=== PATIENT | female | born 1990 | race Caucasian/White ===

== ENCOUNTER → 2016-11-20 | Outpatient (CLI) | payer OTHER ==
[2016-11-20 15:22] LABS: CHCM 33.4; HDW 2.29; MCH 31.3 pg (25.0-35.0); MCHC 32.5 g/dL (31.0-37.0); MCV 96.2 fL (80.0-100.0); Mean Platelet Volume 7.9; RBC 4.47 m/uL (3.80-5.40); RDW 12.3 % (11.5-15.5); WBC 11.5 k/uL (3.8-10.6)
[2016-11-20 15:41] LABS: Glucose 79 mg/dL (74-99); Non-African American GFR(MDRD) >60 (>60 ml/min/1.73 sqM)
[2016-11-20 16:14] LABS: Hepatitis B Surface Ag Index 0.06
--- NOTE | 2016-11-20 16:41 | US ---
EXAMINATION TYPE: US OB <= 14 wk fetus DATE OF EXAM: 11/20/2016 COMPARISON: NONE CLINICAL HISTORY: 26-year-old female Z36 Confirm dates. Confirm Dates, patient has h/o PCOS, unknown dates EXAM PERFORMED: Transabdominal (TA) FINDINGS: EXAM MEASUREMENTS: GESTATIONAL AGE / DATING Physician Established: (8 weeks/3 days) EDC: 06/29/2017 Dates by LMP: Unknown Dates by First Scan: No prior Dates by Current Scan for: (8 weeks/3 days) EDC: 06/29/2017 MATERNAL ANATOMY Uterus: 9.4 x 6.7 x 6.4 cm Right Ovary: 4.2 x 2.5 x 2.6 cm Left Ovary: 4.9 x 3.1 x 2.4 cm Post CDS / Adnexa: wnl Presence of free fluid: No Presence of corpus luteal cyst: Left Ovary= 2.2 x 2.4 x 2.0 cm Presence of subchorionic bleed: wnl GESTATION / SURVEY CRL: 1.9 cm (8 weeks/3 days) MSD: wnl Yolk Sac (normal less than 6mm): 3mm Heart Rate: 172 bpm, borderline elevated. Rhythm: Normal IUP: Viable IUP Date of LMP: Unknown PLANNER SCHEDULER NOTES: Single, viable IUP, no abnormality seen at this time IMPRESSION: 1. Single live intrauterine with established gestational age of 8 weeks 3 days. Current ult rasound biometry is exactly concordant. 2. Borderline elevated heart rate (172 BPM). Follow-up can be considered. 3. Complete survey recommended at 18-20 weeks.
[2016-11-24 08:00] LABS: HIV-1/HIV-2 Ab Screen NONREAC (NON REAC)
== END | disposition home or self-care (01) ==
LOC: RADUSWWP 14:37
PROVIDERS: ATTEND Obstetrics & Gynecology
DX: O26.811 Pregnancy related exhaustion and fatigue, first trimester (principal); Z3A.08 8 weeks gestation of pregnancy
CPT/HCPCS: 76801; 82565; 82947; 85027; 86762; 86780; 86850; 86900; 86901; 87340; 87389

== ENCOUNTER → 2017-03-15 | Outpatient (CLI) | payer OTHER ==
[2017-03-15 12:58] LABS: CH 33.2; CHCM 34.2; HGB 12.5 gm/dL (11.4-16.0); MCH 32.1 pg (25.0-35.0); MCHC 32.9 g/dL (31.0-37.0); MCV 97.6 fL (80.0-100.0); Mean Platelet Volume 6.9; RBC 3.89 m/uL (3.80-5.40); WBC 12.9 k/uL (3.8-10.6)
== END | disposition home or self-care (01) ==
LOC: LABWHC1 11:38
PROVIDERS: ATTEND Obstetrics & Gynecology
DX: Z34.02 Encounter for supervision of normal first pregnancy, second trimester (principal)
CPT/HCPCS: 36415; 82950; 85027

== ENCOUNTER 2017-06-29 08:55 | Inpatient (IN) | payer OTHER ==
[2017-06-29] MEDS ORDERED: OXYTOCIN 10 UNIT/ML 1 ML VIAL IM PRN (11:05)
[2017-06-29] MEDS ORDERED: TERBUTALINE 1 MG/ML VIAL SQ PRN (11:05)
[2017-06-29] MEDS ORDERED: METHYLERGONOVINE 0.2 MG/ML 1 ML AMP IM PRN (11:05)
[2017-06-29] MEDS ORDERED: LIDOCAINE 1% (PF) 10 MG/ML (30 ML SDV) SQ PRN (11:05)
[2017-06-29] MEDS ORDERED: CARBOPROST TROMETHAMINE 250 MCG/ML 1 ML AMP IM PRN (11:05)
[2017-06-29 11:44] LABS: Basophils % (A) 0 %; Eosinophils # (A) 0.3 k/uL (0-0.7); Eosinophils % (A) 3 %; HCT 37.6 % (34.0-46.0); HGB 12.6 gm/dL (11.4-16.0); Lymphocytes # (A) 2.8 k/uL (1.0-4.8); Lymphocytes % (A) 24 %; MCH 31.2 pg (25.0-35.0); MCHC 33.5 g/dL (31.0-37.0); Mean Platelet Volume 6.7; Monocytes # (A) 0.6 k/uL (0-1.0); Monocytes % (A) 5 %; Neutrophils # (A) 7.8 k/uL (1.3-7.7); Neutrophils % (A) 67 %; Platelet Count 391 k/uL (150-450); RBC 4.04 m/uL (3.80-5.40); RDW 12.6 % (11.5-15.5); WBC 11.7 k/uL (3.8-10.6)
[2017-06-29 11:49] LABS: ALT 24 U/L (9-52); AST 19 U/L (14-36); Blood Urea Nitrogen 8 mg/dL (7-17); LDH 448 U/L (313-618); Uric Acid 5.5 mg/dL (3.7-7.4)
[2017-06-29 11:54] LABS: INR 0.9 (<1.2); Partial Thromboplastin Time 22.8 sec (22.0-30.0); Prothrombin Time 9.3 sec (9.0-12.0)
[2017-06-29] MEDS: LACTATED RINGERS 1,000 ML IV SCH (12:18)
[2017-06-29 12:48] LABS: Appearance,Urine Cloudy (Clear); Bacteria,Urine Many /hpf; Bilirubin,Urine Negative (Negative); Blood,Urine Negative (Negative); Calcium Oxalate Crystals,Urine Moderate /hpf; Color,Urine Yellow; Glucose,Urine (UA) Negative (Negative); Ketones,Urine Trace (Negative); Leukocyte Esterase,Urine Large (Negative); Mucus,Urine Rare /hpf; Nitrite,Urine Negative (Negative); Protein,Urine 1+ (Negative); RBC,Urine 17 /hpf (0-5); Specific Gravity,Urine 1.025 (1.001-1.035); Squamous Epithelial Cell,Urine 48 /hpf (0-4); Urobilinogen,Urine <2.0 mg/dL (<2.0); WBC,Urine 52 /hpf (0-5)
--- NOTE | 2017-06-29 12:57 | P.HPOB ---
History of Present Illness H&P Date: 06/29/17 Chief Complaint: Hypertension This patient is a pleasant 27-year-old 1 para 0 female estimated date of confinement 06/29/2017 estimated gestational age 40-0/7 weeks gestation who was admitted to labor and delivery from my office for evaluation of hypertension. Patient's blood pressure in the office was 146/90. Blood pressures have been running 120s to 130s over 80s. Patient denies any headache , blurry vision, or other signs and symptoms of preeclampsia. has been complicated by a seizure disorder although she has not been on any medications and has not had a seizure during her . Preeclampsia labs at this time are normal however she does remained with elevated diastolic blood pressure and therefore I have recommended admission and delivery. Review of Systems Constitutional: Reports as per HPI Gastrointestinal: Reports heartburn Genitourinary: Reports Menstruation: Reports amenorrhea Past Medical History Past Medical History: Seizure Disorder, Skin Disorder Additional Past Medical History / Comment(s): Last seizure June 02 2016; Patient states that she has grand mal seizures although is not currently under the care of a neurologist it is not any medications nor does she want any medications. History of Any Multi-Drug Resistant Organisms: None Reported Past Surgical History: Cholecystectomy Past Anesthesia/Blood Transfusion Reactions: No Reported Reaction Past Psychological History: No Psychological Hx Reported Smoking Status: Never smoker Past Alcohol Use History: None Reported Past Drug Use History: None Reported Additional Drug Use History / Comment(s): Patient reports to the nurse that prior to she was using marijuana for treatment of her seizures however denies use during the . - Past Family History Mother Family Medical History: Hypertension Medications and Allergies Home Medications Medication Instructions Recorded Confirmed Type Pnv,Calcium 72/Iron/Folic Acid 1 tab PO DAILY 06/29/17 06/29/17 History [ Plus Tablet] Allergies Allergy/AdvReac Type Severity Reaction Status Date / Time No Known Allergies Allergy Verified 06/29/17 11:03 Exam - Vital Signs Vital signs: Vital Signs Temp Pulse Resp BP Pulse Ox 06/29/17 11:13 97.1 F L 113 H 19 135/90 98 Intake and Output 06/28/17 06/29/17 06/29/17 22:59 06:59 14:59 Other: Weight 103.419 kg Patient Weight 06/30/17 06:59 Weight 103.419 kg - OBG Physical Exam Abdomen: bowel sounds normal, no diffuse tenderness, no bruit present, no guarding noted, no hepatomegaly, no splenomegaly, no mass Vulva: both: normal Vagina: normal moisture, no discharge Cervix: Cervix is 1-2 cm dilated un effaced and soft. Uterus: enlarged (Fundal height is 40 cm) Results blood work shows she is O positive, rubella low positive, RPR nonreactive, HIV nonreactive, hepatitis B was negative, group B strep was negative, she's had a normal ultrasound., Patient's had normal glucose testing. Result Diagrams: 06/29/17 11:20 06/29/17 11:18 Abnormal Lab Results - Last 24 Hours (Table) 06/29/17 06/29/17 Range/Units 11:20 11:20 WBC 11.7 H (3.8-10.6) k/uL Neutrophils # 7.8 H (1.3-7.7) k/uL Urine Appearance Cloudy H (Clear) Urine Protein 1+ H (Negative) Urine Ketones Trace H (Negative) Ur Leukocyte Esterase Large H (Negative) Urine RBC 17 H (0-5) /hpf Urine WBC 52 H (0-5) /hpf Ur Squamous Epith Cells 48 H (0-4) /hpf Calcium Oxalate Crystal Moderate H (None) /hpf Urine Bacteria Many H (None) /hpf Urine Mucus Rare H (None) /hpf Assessment and Plan Assessment: This is a 27-year-old 1 para 0 female 40-0/7 weeks gestation with mild gestational hypertension without evidence of preeclampsia. Plan at this time his admission and induction of labor for delivery tomorrow morning. Patient I discussed her clinical situation and recommendations for delivery. I also discussed the induction process. (1) Gestational hypertension affecting first Current Visit: Yes Status: Acute Code(s): O13.9 - GESTATIONAL HTN W/O SIGNIFICANT PROTEINURIA, UNSP TRIMESTER SNOMED Code(s): 00869453
[2017-06-30] MEDS: LACTATED RINGERS 1,000 ML IV SCH ×4 (05:31→13:54)
[2017-06-30] MEDS ORDERED: OXYTOCIN 20 UNITS/1000 ML NS 1,000 ML IV SCH ×2 (06:00→21:15)
--- NOTE | 2017-06-30 06:08 | P.PN ---
Progress Note - Text Progress Note Date: 06/30/17 Patient rested overnight. Blood pressures were fine. heart tones are reactive. Cervix is 3 cm and were beginning Pitocin per protocol for induction. Artificial rupture membranes was done for clear fluid. Anticipate vaginal delivery.
[2017-06-30] MEDS: BUTORPHANOL 1 MG/ML 1 ML VIAL IV PRN ×2 (11:37→14:42)
[2017-06-30] MEDS ORDERED: AMPICILLIN 2,000 MG in SODIUM CHLORIDE 0.9% 100 ML IVPB STA (19:47)
[2017-06-30] MEDS ORDERED: ZOLPIDEM 5 MG TAB PO PRN (21:12)
[2017-06-30] MEDS ORDERED: MEASLES-MUMPS-RUBELLA VACC/PF 12,500 UNIT/0.5 ML VIAL SQ ONE (21:12)
[2017-06-30] MEDS ORDERED: BISACODYL 10 MG SUPP RECTAL PRN (21:12)
[2017-06-30] MEDS ORDERED: BENZOCAINE/MENTHOL SPRAY 1 GM/SPRAY AEROSOL TOPICAL PRN (21:12)
[2017-06-30] MEDS ORDERED: SIMETHICONE 80 MG CHEWABLE PO PRN (21:12)
[2017-06-30] MEDS ORDERED: diphenhydrAMINE 50 MG/ML 1 ML VIAL IVP PRN (21:12)
[2017-06-30] MEDS ORDERED: Acetaminophen-Codeine 300-30mg TAB PO PRN ×2 (21:12)
[2017-06-30] MEDS ORDERED: LANOLIN CREAM 5 GM TUBE TOPICAL PRN (21:12)
[2017-06-30] MEDS ORDERED: HYDROCORTISONE 2.5% RECTAL CREAM 30 GM TUBE RECTAL PRN (21:12)
[2017-06-30] MEDS ORDERED: WITCH HAZEL 1 EACH MED..PAD TOPICAL PRN (21:12)
[2017-06-30] MEDS ORDERED: diphenhydrAMINE 25 MG CAP PO PRN (21:12)
[2017-06-30] MEDS ORDERED: ACETAMINOPHEN TAB 325 MG TAB PO PRN (21:12)
--- NOTE | 2017-06-30 21:20 | P.PROBDLV ---
Vaginal Delivery Note - . Vaginal Delivery Note: Normal vaginal delivery of a viable female Apgars 8 and 9 delivery time is 2049 hrs. Please see dictated H&P for intimate details of this patient's admission. Brief summary this is a 27-year-old 1 para 0 female 40 and one sevenths weeks gestation admitted for induction of labor secondary to gestational hypertension. Patient is 3 cm dilated has artificial rupture of membranes for clear fluid. Labor is induced with Pitocin. Patient does progress slowly but does get to complete. She received 2 doses of intrapartum Stadol for pain control. Patient pushes the head to the perineum and the posterior perineum was supported. We have controlled delivery of infant's head over the intact perineum. Mouth and nares are bulb suctioned. There is a double nuchal cord and the patient continues to push and deliver is anterior posterior shoulder and rest this 's body. This is a vigorous viable female Apgars 8 and 9 delivery time is 2049 hrs area and after delivery of the infant the infant is late on the mother's abdomen. Patient does request delayed cord clamping and this is done. At this time the cords doubly clamped and cut. It does appear to be trivascular. Placenta spontaneously delivered intact. Estimated blood loss is 150 mL. There is a first-degree posterior perineal laceration is repaired with 3-0 Vicryl usual manner. Also a right periurethral lacerations does not require repair. All counts are correct 3. There were no complications. Infant and mother stable delivery room.
[2017-06-30] MEDS: IBUPROFEN 600 MG TAB PO PRN (22:52)
[2017-06-30 23:02] VITALS: BMI 39.1
[2017-07-01] MEDS ORDERED: AMPICILLIN 1,000 MG in SODIUM CHLORIDE 0.9% 50 ML IVPB SCH ×2
--- NOTE | 2017-07-01 06:13 | P.PNOBGVD ---
Subjective - Subjective Patient reports: Reports appetite normal, Reports voiding normally, Reports pain well controlled, Reports ambulating normally [place]: doing well Objective - Latest Vital Signs Latest vital signs: Vital Signs Temp Pulse Pulse Resp BP Pulse Ox 07/01/17 04:00 98.0 F 85 16 97/66 99 07/01/17 00:15 98.3 F 96 16 122/73 99 06/30/17 22:52 97.7 F 78 16 119/76 06/30/17 22:22 90 16 141/80 06/30/17 21:52 81 16 116/65 06/30/17 21:37 97.7 F 76 16 129/69 06/30/17 21:22 82 16 126/61 06/30/17 21:07 73 18 144/78 06/30/17 20:51 83 18 137/83 Intake and Output 06/30/17 06/30/17 07/01/17 14:59 22:59 06:59 Output Total 150 Balance -150 Output: Estimated Blood Loss 150 Other: # Voids 2 1 - Exam Lungs: bilateral: normal Chest: Normal S1, Normal S2 Extremities: Present: normal Abdomen: Present: normal appearance, soft Uterus: Present: normal, firm Assessment and Plan Assessment: Post day #1. Patient is resting without complaints. Vital signs are stable and she is afebrile. Uterus is firm nontender she's having normal lochia. Plan is to continue routine care discharge home tomorrow (1) Gestational hypertension affecting first Current Visit: Yes Status: Acute Code(s): O13.9 - GESTATIONAL HTN W/O SIGNIFICANT PROTEINURIA, UNSP TRIMESTER SNOMED Code(s): 07578838
[2017-07-01] MEDS: IBUPROFEN 600 MG TAB PO PRN ×2 (08:07→14:51)
[2017-07-01] MEDS: SENNOSIDES-DOCUSATE SODIUM 1 EACH TAB PO SCH ×2 (14:52→21:53)
[2017-07-02] MEDS: IBUPROFEN 600 MG TAB PO PRN (00:21)
--- NOTE | 2017-07-02 06:34 | P.PNOBGVD ---
Subjective - Subjective Patient reports: Reports appetite normal, Reports voiding normally, Reports pain well controlled, Reports ambulating normally : doing well Objective - Latest Vital Signs Latest vital signs: Vital Signs Temp Pulse Resp BP Pulse Ox 07/02/17 00:00 98 F 96 15 104/83 100 07/01/17 16:00 98.3 F 74 18 125/72 07/01/17 12:00 97.6 F 88 16 111/70 99 07/01/17 08:00 98.3 F 72 16 102/64 100 - Exam Lungs: bilateral: normal Chest: Normal S1, Normal S2 Extremities: Present: normal Abdomen: Present: normal appearance, soft Uterus: Present: normal, firm Assessment and Plan Assessment: day #2. Patient is resting without complaints. Vital signs are stable and she is afebrile. My impression is a normal course. Plan is to continue routine care discharge home later today. (1) Gestational hypertension affecting first Current Visit: Yes Status: Acute Code(s): O13.9 - GESTATIONAL HTN W/O SIGNIFICANT PROTEINURIA, UNSP TRIMESTER SNOMED Code(s): 46529935
--- NOTE | 2017-07-02 06:36 | P.DS ---
Providers Date of admission: 06/29/17 10:55 Expected date of discharge: 07/02/17 Attending physician: Shakeel Tucker Primary care physician: Stated None - Discharge Diagnosis(es) (1) Gestational hypertension affecting first Current Visit: Yes Status: Acute Hospital Course: Please see dictated H&P for intimate details of this patient's admission. Brief summary this is a 27-year-old 1 para 0 female admitted for induction of labor secondary to gestational hypertension and postdates . Patient is on, K induction of labor was on to have a vaginal delivery viable female infant. Please see dictated delivery note. Day # 2 patient's felt to be stable for discharge home follow up with me in 6 weeks. Procedures: Normal spontaneous vaginal delivery Patient Condition at Discharge: Good Plan - Discharge Summary New Discharge Prescriptions: New Acetaminophen-Codeine 300-30mg [Tylenol w/codeine #3] 1 each PO Q4HR PRN #20 tab PRN Reason: Mild Pain exceeding Tylenol Ibuprofen [Motrin] 600 mg PO Q6HR PRN #40 tab PRN Reason: Mild Pain Or Fever >= 100.5 No Action Pnv,Calcium 72/Iron/Folic Acid [ Plus Tablet] 1 tab PO DAILY Discharge Medication List Pnv,Calcium 72/Iron/Folic Acid [ Plus Tablet] 1 tab PO DAILY 06/29/17 [ History] Acetaminophen-Codeine 300-30mg [Tylenol w/codeine #3] 1 each PO Q4HR PRN #20 tab 07/02/17 [Rx] Ibuprofen [Motrin] 600 mg PO Q6HR PRN #40 tab 07/02/17 [Rx] Follow up Appointment(s)/Referral(s): Shakeel Tucker MD [STAFF PHYSICIAN] - 08/12/17 10:15 am Patient Instructions/Handouts: Vaginal Delivery (DC) Activity/Diet/Wound Care/Special Instructions: No intercourse or anything per vagina for 6 weeks. Please call if any fever, chills, excessive vaginal bleeding, and/or abdominal pain. Discharge Disposition: HOME SELF-CARE
[2017-07-02 08:30] VITALS: RESP 16
[2017-07-02] MEDS: SENNOSIDES-DOCUSATE SODIUM 1 EACH TAB PO SCH (08:32)
[2017-07-02 16:20] VITALS: BP 121/69; PULSE 74; TEMP 97.9
== END 2017-07-02 17:58 | disposition home or self-care (01) | DRG 775 ==
LOC: 4FBP 10:55
PROVIDERS: ADMIT Obstetrics & Gynecology; ATTEND Obstetrics & Gynecology
PROC: 10907ZC Drainage of Amniotic Fluid, Therapeutic from Products of Conception, Via Natural or Artificial Opening (ICD-10-PCS; principal; 2017-06-30)
PROC: 10E0XZZ Delivery of Products of Conception, External Approach (ICD-10-PCS; 2017-06-30)
PROC: 0HQ9XZZ Repair Perineum Skin, External Approach (ICD-10-PCS; 2017-06-30)
DX: O48.0 Post-term pregnancy (principal); G40.409 Other generalized epilepsy and epileptic syndromes, not intractable, without status epilepticus; O99.354 Diseases of the nervous system complicating childbirth; O69.81X0 Labor and delivery complicated by cord around neck, without compression, not applicable or unspecified; O70.0 First degree perineal laceration during delivery; O71.82 Other specified trauma to perineum and vulva; O13.4 Gestational [pregnancy-induced] hypertension without significant proteinuria, complicating childbirth; Z3A.40 40 weeks gestation of pregnancy; Z37.0 Single live birth; Z82.49 Family history of ischemic heart disease and other diseases of the circulatory system; Z90.49 Acquired absence of other specified parts of digestive tract
CPT/HCPCS: 81001; 82565; 83615; 84450; 84460; 84520; 84550; 85025; 85610; 85730; 88307; 90707

== ENCOUNTER → 2018-02-09 | Outpatient (CLI) | payer OTHER ==
--- NOTE | 2018-02-09 15:24 | MR ---
EXAMINATION TYPE: MR brain wo con DATE OF EXAM: 02/09/2018 COMPARISON: NONE HISTORY: Seizures, Dizziness TECHNIQUE: Multiplanar, multisequence imaging of the brain and brainstem is performed without IV cont rast. FINDINGS: Diffusion weighted images demonstrate no evidence of a recent infarct or other diffusion abnormality. There is no extraaxial fluid collection or significant white matter signal abnormality. The ventricu lar system and cisternal spaces are normal in size and appearance. The brain volume is age appropria te. T2 coronal weighted images show hippocampal gyri to appear symmetric and felt within normal limit s. Midline structures demonstrate normal morphology. The craniocervical junction appears within normal limits. Normal vascular flow voids are present. The visualized sinuses are clear and the globes are i ntact. Some patchy fluid signal right mastoid air cells is present. Nasal septum is deviated to right of midline. IMPRESSION: Correlate to exclude mild right-sided mastoiditis otherwise unremarkable study.
== END | disposition home or self-care (01) ==
LOC: RADMRIMAIN 14:45
PROVIDERS: ATTEND Psychiatry & Neurology Neurology
DX: R56.9 Unspecified convulsions (principal)
CPT/HCPCS: 70551

== ENCOUNTER → 2019-06-12 | Outpatient (CLI) | payer OTHER ==
--- NOTE | 2019-06-12 15:50 | US ---
EXAMINATION TYPE: US transvaginal DATE OF EXAM: 06/12/2019 COMPARISON: NONE CLINICAL HISTORY: pelvic pain R10.2. Pain TECHNIQUE: Transvaginal (TV). EXAM MEASUREMENTS: Uterus: 6.8 x 4.3 x 5.0 cm Endometrial Stripe: .4 cm Right Ovary: 3.7 x 2.5 x 2.4 cm Left Ovary: 3.3 x 2.3 x 2.3 cm 1. Uterus: Retroverted Nabothian cysts seen. 2. Endometrium: wnl 3. Right Ovary: Physiologic follicular change 4. Left Ovary: Physiologic follicular change 5. Bilateral Adnexa: wnl 6. Posterior cul-de-sac: wnl Vascular flow seen to both ovaries. Ovaries are similar in size. IMPRESSION: Physiologic follicular changes of the ovaries. Unremarkable pelvic ultrasound.
== END | disposition home or self-care (01) ==
LOC: RADUSWWP 14:42
PROVIDERS: ATTEND Obstetrics & Gynecology
DX: R10.2 Pelvic and perineal pain (principal)
CPT/HCPCS: 76830

== ENCOUNTER → 2019-08-28 | Outpatient (CLI) | payer OTHER | END | disposition home or self-care (01) | LOC: RADECHMAIN 12:18 | PROVIDERS: ATTEND Family Medicine | DX: I49.9 Cardiac arrhythmia, unspecified (principal); R00.0 Tachycardia, unspecified | CPT/HCPCS: 93225; 93226 ==